=== PATIENT | female | born 1955 | race Caucasian/White ===

== ENCOUNTER → 2016-10-18 | Outpatient (CLI) | payer MEDICARE, MEDICAID ==
[~2016-10-18] MED LIST: *PREMTA PO; /CELE20CA OR; CALCCHW12 PO; FISH1000 OR; MULTIVIT PO; SOMA250T OR; VICO5TAB OR; VICODINES TAB OR; VITAMIN B COMPLE1 OR; VOLT1GEL EX
--- NOTE | 2016-10-19 09:20 | REP ---
MR LUMBAR SPINE WITHOUT CONTRAST: HISTORY: Disc degeneration. COMPARISON: 10/18/2014 Decreased signal intensity on T2- weighted images is present in the L2-3 through L5-S1 intervertebral discs. The discs are decreased in height. These findings are consistent with disc degeneration. There is no disc bulge or herniation at the L1-2 level. The L1 nerves exit the neural foramina without compression. A diffuse disc bulge and small left paracentral and intraforaminal disc protrusion are present at the L2-3 level. There is hypertrophy of the ligamenta flava and posterior articulating facets. These findings produce minimal central canal stenosis. The L2 nerves exit the neural foramina without compression. A diffuse disc bulge and small central disc protrusion are present at the L3-4 level. There is hypertrophy of the ligamenta flava and posterior articulating facets. These findings produce minimal central canal stenosis. The L3 nerves exit the neural foramina without compression. A diffuse disc bulge and small left paracentral and intraforaminal disc protrusion are present at the L4-5 level. There is hypertrophy of the ligamenta flava and posterior articulating facets. There are 3 mm of grade I spondylolisthesis of L4 on L5. These findings produce severe central canal stenosis. The L4 nerves exit the neural foramina without compression. A diffuse disc bulge and small central disc protrusion are present at the L5-S1 level. There is minimal compression of the thecal sac. There is hypertrophy of the posterior articulating facets. The L5 nerves exit the neural foramina without compression. The conus medullaris is normal in appearance terminating at the level of the L1-2 intervertebral disc . Increased signal intensity on T2-weighted images is present in the endplates of the L5 and S1 vertebral bodies and L4 facets. This represents degenerative change. IMPRESSION: 1. Minimal central canal stenosis at the L2-3 level secondary to disc bulge, disc protrusion and ligamentous and facet hypertrophy. 2. Minimal central canal stenosis at the L3-4 level secondary to disc bulge, disc protrusion , ligamentous and facet hypertrophy. 3. Severe central canal stenosis at the L4-5 levels secondary to disc bulge, ligamentous and facet hypertrophy and grade I spondylolisthesis. There has been progression of the canal stenosis. The spondylolisthesis is a new finding. 4. Diffuse disc bulge and small central disc protrusion at the L5-S1 level with minimal thecal sac compression. There is no other significant change. Signed by Jak Deluca MD 10/19/2016 09:31 A
== END ==
LOC: M RAD 17:02
PROVIDERS: ATTEND Physical Medicine & Rehabilitation
DX: M51.37 Other intervertebral disc degeneration, lumbosacral region (principal)

== ENCOUNTER → 2016-10-25 | Outpatient (CLI) | payer MEDICARE, MEDICAID ==
--- NOTE | 2016-10-25 14:25 | REP ---
RENAL NUCLEAR SCAN WITH FLOW AND FUNCTION: Following the intravenous administration of 8.8 mCi of technetium-99m MAG 3, immediate flow images are obtained in the posterior projections showing symmetrical perfusion. Delayed renal function images are performed every minute for a period of 30 minutes in the posterior projection. No definite cortical defect is seen bilaterally. There is bilateral cortical uptake and symmetrical washout and excretion. There is no hydronephrosis or evidence of urinary tract obstruction. The split function is 57% on the left and 43% on the right. Time to peak is normal bilaterally, 2 minutes on the left and 1 minute on the right. T1/2 is normal bilaterally, 6.5 minutes on the left and 9.0 minutes on the right. Renal function curves are normal in their downward slopes. There is mild postvoid residual in the urinary bladder after voiding. IMPRESSION: Essentially normal renal scan. Signed by Kurt Bonilla MD 10/26/2016 03:15 P
--- NOTE | 2016-10-25 14:30 | REP ---
RENAL AND BLADDER ULTRASOUND: Real-time sonographic evaluation of the kidneys performed and demonstrates both kidneys to be normal in size and echotexture, right kidney measuring 10.3 x 6.4 x 3.9 cm and left kidney 11.0 x 5.3 x 4.8 cm. There is no renal mass, hydronephrosis, or nephrolithiasis. Urinary bladder is mildly distended with no gross mass or calculus. IMPRESSION: Negative renal and bladder ultrasound. Signed by Kurt Bonilla MD 10/26/2016 03:15 P
== END ==
LOC: M RAD 12:50
PROVIDERS: ATTEND Physical Medicine & Rehabilitation
DX: N39.3 Stress incontinence (female) (male) (principal)
CPT/HCPCS: 76775; 78707; A9562

== ENCOUNTER → 2016-11-07 | Outpatient (REF) | payer MEDICARE, MEDICAID | LOC: M SMT 12:48 | PROVIDERS: ATTEND Nurse Practitioner Women's Health | DX: R39.15 Urgency of urination (principal) ==

== ENCOUNTER → 2016-11-28 | Outpatient (CLI) | payer MEDICARE, MEDICAID ==
--- NOTE | 2016-11-30 09:36 | SLEEPHOME ---
DATE OF PROCEDURE: 11/28/2016 ORDERED BY: Eileen Pinzon NP Diagnostic home sleep testing was performed due to concern for the obstructive sleep apnea syndrome. For testing, a NOX-T3 respiratory monitoring device was used. Continuous record was made of pulse, oxygen saturation, chest and abdominal strain, airflow and body position. 10 hours and 59 minutes of data were reviewed. Of these, 4 hours and 51 minutes were marked as time in bed. During the interval marked time in bed, there were 70 respiratory events were identified of 10 seconds in duration or greater for a respiratory event index of 14.4. The events were primarily obstructive. Baseline heart rate 75. Pulse rate ranged 64-92. Baseline saturation 92%. Lowest oxygen saturation 83%. Testing was performed in both the supine and non-supine positions. IMPRESSION: Abnormal home sleep testing with repetitive respiratory events and oxygen desaturations to 83% with a respiratory event index of 14.4 is consistent with the obstructive sleep apnea syndrome. RECOMMENDATION: The patient should be undergo formal sleep evaluation and in-laboratory pressure titration.
== END ==
LOC: M SLEEP HO 12:01
PROVIDERS: ATTEND Nurse Practitioner Adult Health
DX: G47.30 Sleep apnea, unspecified (principal)

== ENCOUNTER → 2016-12-04 | Outpatient (CLI) | payer MEDICARE, MEDICAID ==
--- NOTE | 2016-12-04 16:28 | REP ---
CT LUMBAR SPINE WITHOUT CONTRAST: HISTORY: Back pain. COMPARISON: MR 10/18/2016 There is no disc bulge or herniation at the L1-2 level. The L1 nerves exit the neural foramina without compression. A diffuse disc bulge and small left paracentral intraforaminal disc protrusion are present at the L2-3 level. There is hypertrophy of the ligamenta flava and posterior articulating facets. These findings produce minimal central canal stenosis. The L2 nerves exit the neural foramina without compression. A diffuse disc bulge is present at the L3-4 level. The previously noted small disc protrusion is not seen. There is hypertrophy of the ligamenta flava and posterior articulating facets. A subchondral cyst is present in the right L3 inferior facet. These findings produce mild central canal stenosis. The L3 nerves exit the neural foramina without compression. A diffuse disc bulge is present at the L4-5 level. There is hypertrophy of the ligamenta flava and posterior articulating facets. There are 3 mm of grade 1 spondylolisthesis of L4 on 5. These findings produce severe central canal stenosis. The L4 nerves exit the neural foramina without compression. A diffuse disc bulge is present at the L5-S1 level. The previously noted small disc protrusion is not seen. There is minimal compression of the thecal sac. There is hypertrophy of the posterior articulating facets. The L5 nerves exit the neural foramina without compression. The L2-3 through L5-S1 intervertebral discs are decreased in height consistent with disc degeneration. The vertebral bodies are normal in height. IMPRESSION: 1. Minimal central canal stenosis at the L2-3 level secondary to disc bulge, disc protrusion, ligamentous and facet hypertrophy. 2. Mild central canal stenosis at the L3-4 level secondary to disc bulge, ligamentous and facet hypertrophy and a right L3 facet subchondral cyst. The previously noted small disc protrusion is not seen. 3. Severe central canal stenosis at the L4-5 level secondary to disc bulge, ligamentous and facet hypertrophy and grade 1 spondylolisthesis. 4. Diffuse disc bulge at the L5-S1 level with minimal thecal sac compression. The previously noted small disc protrusion is not seen. There is no other significant change. Signed by Jak Deluca MD 12/04/2016 04:33 P
== END ==
LOC: M RAD 15:02
PROVIDERS: ATTEND Physician Assistant
DX: M99.43 Connective tissue stenosis of neural canal of lumbar region (principal); M85.48 Solitary bone cyst, other site; M51.26 Other intervertebral disc displacement, lumbar region; M51.27 Other intervertebral disc displacement, lumbosacral region

== ENCOUNTER → 2017-01-02 | Outpatient (CLI) | payer MEDICARE, MEDICAID | LOC: M SLEEP 19:51 | PROVIDERS: ATTEND Nurse Practitioner Adult Health | DX: G47.33 Obstructive sleep apnea (adult) (pediatric) (principal) ==

== ENCOUNTER 2017-02-21 10:04 | Outpatient (CLI) | payer MEDICAID, MEDICARE ==
[~2017-02-21] VITALS: Ht 175.3 cm; Wt 74.8 kg
[~2017-02-21 10:04] MED LIST changes: +BACL10TA2 PO; +BIOT50004 PO; +CALCTAB97 PO; +GRAP1CAP PO; +MULT1TAB10 PO; +PREM.6256 PO; +TRAM50TA2 PO; +VITA400C97 PO; +[UNRECOGNIZED DRUG - CODE] PO
[2017-02-21] MEDS ORDERED: PROPOFOL 200 MG/20 ML VIAL As Ordered ONE (10:34)
[2017-02-21] MEDS ORDERED: LIDOCAINE 2% INJ 100 MG/5 ML SDV (FOR ANES.) As Ordered ONE (10:35)
[2017-02-21] MEDS: NS 1,000 ML IV SCH ×2 (11:05→11:06)
--- NOTE | 2017-02-21 11:47 | ROOR ---
Patient Name: Brijesh Dennis Procedure Date: 02/21/2017 11:20 AM Date of : 1955 Age: 62 Room: [facility] Gender: Female Note Status: Finalized Procedure: Colonoscopy Indications: Screening for colorectal malignant neoplasm Providers: Margarito Connell Jr, MD Referring MD: IOANA CHING NP Requesting Provider: Medicines: Propofol per Anesthesia Complications: No immediate complications. Procedure: Pre-Anesthesia Assessment: - Prior to the procedure, a History and Physical was performed, and patient medications and allergies were reviewed. The patient is competent. The risks and benefits of the procedure and the sedation options and risks were discussed with the patient. All questions were answered and informed consent was obtained. Patient identification and proposed procedure were verified by the physician and the nurse in the pre-procedure area and in the procedure room. Mental Status Examination: alert and oriented. Airway Examination: normal oropharyngeal airway and neck mobility. Respiratory Examination: clear to auscultation. CV Examination: normal. ASA Grade Assessment: II - A patient with mild systemic disease. After reviewing the risks and benefits, the patient was deemed in satisfactory condition to undergo the procedure. The anesthesia plan was to use moderate sedation / analgesia (conscious sedation). Immediately prior to administration of medications, the patient was re-assessed for adequacy to receive sedatives. The heart rate, respiratory rate, oxygen saturations, blood pressure, adequacy of pulmonary ventilation, and response to care were monitored throughout the procedure. The physical status of the patient was re-assessed after the procedure. The Colonoscope was introduced through the anus and advanced to the cecum, identified by appendiceal orifice and ileocecal valve. The colonoscopy was performed without difficulty. The patient tolerated the procedure well. The quality of the bowel preparation was adequate and good. Findings: The perianal and digital rectal examinations were normal. Pertinent negatives include normal sphincter tone, no palpable rectal lesions and no anal lesion or abnormality was detected. The recto-sigmoid colon, sigmoid colon, descending colon, transverse colon, ascending colon, cecum, appendiceal orifice and ileocecal valve appeared normal. Multiple hyperplastic polyps were found in the rectum. The polyps were small in size. These polyps were removed with a hot snare. Resection and retrieval were complete. Impression: - The recto-sigmoid colon, sigmoid colon, descending colon, transverse colon, ascending colon, cecum, appendiceal orifice and ileocecal valve are normal. - Multiple small polyps in the rectum, removed with a hot snare. Resected and retrieved. Recommendation: - Discharge patient to home (ambulatory). - Repeat colonoscopy in 5-10 years for surveillance based on pathology results. Margarito Connell MD Margarito Connell Jr, MD 02/21/2017 11:41:43 AM This report has been signed electronically. Number of Addenda: 0 Note Initiated On: 02/21/2017 11:20 AM Estimated Blood Loss: Estimated blood loss: none.
[2017-02-21 12:03] VITALS: BP 129/81
== END 2017-02-21 12:05 | disposition home or self-care (01) ==
LOC: M OPP 10:04
PROVIDERS: ATTEND Surgery
DX: Z12.11 Encounter for screening for malignant neoplasm of colon (principal); K62.1 Rectal polyp; K21.9 Gastro-esophageal reflux disease without esophagitis; G47.30 Sleep apnea, unspecified; R32 Unspecified urinary incontinence; Z78.0 Asymptomatic menopausal state; Z87.891 Personal history of nicotine dependence; Z79.899 Other long term (current) drug therapy; Z91.030 Bee allergy status; Z88.5 Allergy status to narcotic agent

== ENCOUNTER → 2017-05-01 | Outpatient (CLI) | payer MEDICARE ==
--- NOTE | 2017-05-01 15:12 | REPMRS ---
Patient History The patient states she had a clinical breast exam in 10/29 Patient is postmenopausal. No known family history of cancer. Taking estrogen for 10 years. Digital Woman Screen Mammo: May 01, 2017 - Exam #: [id number] Bilateral CC and MLO view(s) were taken. Technologist: Susana Walton, Technologist Prior study comparison: December 30, 2015, digital woman screen mammo performed at [facility]. February 24, 2008, digital bilateral screening mammo, performed at [facility]. FINDINGS: There are scattered fibroglandular densities. There has been no change in the appearance of the mammogram from the prior studies. There is a mild amount of residual fibroglandular tissue which is fairly symmetric. There is no interval development of dominant mass, architectural distortion, or clustered microcalcification suggestive of malignancy. ASSESSMENT: BI-RADS/ACR category 1 mammogram. Negative. Recommendation Routine screening mammogram in 1 year (for women over age 40). This mammogram was interpreted with the aid of an FDA-approved computer-aided dectection system. Electronically Signed By: Kurt Bonilla MD 05/01/17 [id number]
== END ==
LOC: M WHC 14:08
PROVIDERS: ATTEND Nurse Practitioner Family
DX: Z12.31 Encounter for screening mammogram for malignant neoplasm of breast (principal); Z78.0 Asymptomatic menopausal state

== ENCOUNTER → 2018-11-29 | Outpatient (CLI) | payer MEDICARE ==
[~2018-11-29] MED LIST changes: -/CELE20CA OR; +CELE1CAP4 OR
--- NOTE | 2018-11-29 10:41 | REP ---
HISTORY: Pain after trauma. COMPARISON: None. There is a comminuted distal radial fracture with an intraarticular component. IMPRESSION: Distal radial fracture. Electronically Signed by Ji Flower DO 11/29/2018 11:13 A
== END ==
LOC: M WUC 09:37
PROVIDERS: ATTEND Physician Assistant
DX: S52.502A Unspecified fracture of the lower end of left radius, initial encounter for closed fracture (principal); Y92.9 Unspecified place or not applicable; Y93.9 Activity, unspecified; Y99.9 Unspecified external cause status

== ENCOUNTER → 2020-05-18 | Outpatient (CLI) | payer MEDICARE ==
--- NOTE | 2020-05-18 14:54 | REPMRS ---
Patient History The patient states she had a clinical breast exam in February 2020. Patient is postmenopausal. No known family history of cancer. Took estrogen for 10 years. Taking progesterone for 1 year. 3D TOMOSYNTHESIS WAS PERFORMED. [facility] lifetime risk for breast cancer is 5.5%. Volpara breast density b. Digital Woman Screen Mammo: May 18, 2020 - Exam #: [id number] Bilateral CC and MLO view(s) were taken. Technologist: RT Richie Prior study comparison: May 01, 2017, digital woman screen mammo performed at [facility]. December 30, 2015, digital woman screen mammo performed at [facility]. FINDINGS: There are scattered fibroglandular densities. There has been no change in the appearance of the mammogram from the prior studies. There is a mild amount of residual fibroglandular tissue which is fairly symmetric. There is no interval development of dominant mass, architectural distortion, or clustered microcalcification suggestive of malignancy. Assessment: BI-RADS/ACR category 1 mammogram. Negative Mammogram. Recommendation Routine screening mammogram in 1 year (for women over age 40). This mammogram was interpreted with the aid of an FDA-approved computer-aided dectection system. Electronically Signed By: Kurt Bonilla MD 05/18/20 [id number]
--- NOTE | 2020-05-18 17:05 | DEXA ---
INDICATION: OSTEOPOROSIS. COMPARISON: 03/30/2004 TECHNIQUE: Bone density was measured using dual-energy x-ray absorptiometry (DEXA). FINDINGS: AP SPINE L1-L4 BMD 0.972 g/cm2 Young Adult T-Score -1.7 Age Matched Z-Score -0.3. LT FEMUR, TOTAL BMD 0.766 g/cm2 Young Adult T-Score -1.9 Age Matched Z-Score -0.8. LT NECK BMD 0.758 g/cm2 Young Adult T-Score -2.0 Age Matched Z-Score -0.6. RT FEMUR, TOTAL BMD 0.774 g/cm2 Young Adult T-Score -1.9 Age Matched Z-Score -0.8. RT NECK BMD 0.786 g/cm2 Young Adult T-Score -1.8 Age Matched Z-Score -0.4. IMPRESSION: There is low bone density of the spine. There is low bone density of the left hip. There is low bone density of the right hip. The density of the spine has decreased 13.0% since the initial exam on 03/30/2004. The density of the left hip has decreased 13.6% since initial exam on 03/30/2004. The density of the right hip has decreased 11.9% since the initial exam on 03/30/2004. FOLLOW-UP: Recommendation for the next bone density exam: 2 years. <Electronically signed by Kurt Bonilla > 05/18/20 0541
== END ==
LOC: M WHC 13:29
PROVIDERS: ATTEND Physician Assistant Medical
DX: Z12.31 Encounter for screening mammogram for malignant neoplasm of breast (principal); M81.0 Age-related osteoporosis without current pathological fracture

== ENCOUNTER → 2022-05-25 | Outpatient (CLI) | payer MEDICARE | LOC: M WHC 12:49 | PROVIDERS: ATTEND Physician Assistant Medical | DX: Z12.31 Encounter for screening mammogram for malignant neoplasm of breast (principal); M85.89 Other specified disorders of bone density and structure, multiple sites ==

== ENCOUNTER → 2024-11-20 | Outpatient (CLI) | payer MEDICARE ==
[~2024-11-20] MED LIST changes: +ATOR1TAB21 PO; -BIOT50004 PO; +BIOT5CAP8 PO; +CALC600T61 PO; +PREM0.6254 PO; +VITA200020 PO
== END ==
LOC: M WHC 08:50
PROVIDERS: ATTEND Physician Assistant Medical
DX: Z12.31 Encounter for screening mammogram for malignant neoplasm of breast (principal); M85.89 Other specified disorders of bone density and structure, multiple sites; R92.323 Mammographic fibroglandular density, bilateral breasts